=== PATIENT | male | born 1960 | race Caucasian/White ===

== ENCOUNTER 2020-09-09 10:28 | Day surgery (SDC) | payer OTHER ==
[~2020-09-09] VITALS: Ht 182.9 cm; Wt 109.0 kg
[~2020-09-09 10:28] MED LIST: AMLO-150 PO; ASPI-963 PO; ATOR10TA9 PO; CARV-39 PO; CLOP75TA PO; INSU100I13 SQ; LOSA100T14 PO
[2020-09-09] MEDS ORDERED: DULA0.75 SC (11:11)
[2020-09-09 11:14] VITALS: BP 164/118
[2020-09-09] MEDS ORDERED: SODIUM CHLORIDE 0.9% 1,000 ML IV SCH (11:30)
[2020-09-09] MEDS ORDERED: PROPOFOL 10 MG/ML, 20ML ONE (14:03)
== END 2020-09-09 14:31 | disposition home or self-care (01) ==
LOC: CACL 10:28
PROVIDERS: ATTEND Internal Medicine Cardiovascular Disease
DX: Q21.1 Atrial septal defect (principal); I08.0 Rheumatic disorders of both mitral and aortic valves; I10 Essential (primary) hypertension; E11.9 Type 2 diabetes mellitus without complications; E78.5 Hyperlipidemia, unspecified; Z20.822 Contact with and (suspected) exposure to COVID-19; Z79.02 Long term (current) use of antithrombotics/antiplatelets; Z79.4 Long term (current) use of insulin; Z79.82 Long term (current) use of aspirin; Z79.890 Hormone replacement therapy; Z79.899 Other long term (current) drug therapy; Z86.73 Personal history of transient ischemic attack (TIA), and cerebral infarction without residual deficits
CPT/HCPCS: 87635; 93312; 93325; J2704